=== PATIENT | male | born 1980 | race African-American/Black ===

== ENCOUNTER 2018-03-20 22:48 | Emergency (ER) | payer OTHER ==
[~2018-03-20] VITALS: Ht 180.3 cm; Wt 72.6 kg
[2018-03-20 22:50] VITALS: BP 133/86
[2018-03-20] MEDS ORDERED: AMOX875T PO (23:17)
--- NOTE | 2018-03-20 23:17 | PHYS DOC ---
Adult General Chief Complaint Chief Complaint: SORE THROAT HPI HPI Patient is a 38 year old male who presents with sore throat, cough and nasal congestion for one day. Patient denies any fever. Review of Systems Review of Systems Constitutional: Denies fever or chills [] Eyes: Denies change in visual acuity, redness, or eye pain [] HENT: Reports nasal congestion and sore throat [] Respiratory: Reports cough, denies shortness of breath [] Cardiovascular: No additional information not addressed in HPI [] GI: Denies abdominal pain, nausea, vomiting, bloody stools or diarrhea [] : Denies dysuria or hematuria [] Musculoskeletal: Denies back pain or joint pain [] Integument: Denies rash or skin lesions [] Neurologic: Denies headache, focal weakness or sensory changes [] All other systems were reviewed and found to be within normal limits, except as documented in this note. Current Medications Current Medications Current Medications Medications (Trade) Dose Ordered Sig/Myla Start Time Stop Time Status Last Admin Dose Admin Amoxicillin (Amoxil) 500 mg 1X ONCE 03/20/18 23:30 03/20/18 23:31 DC 03/20/18 23:15 500 MG Prednisone (Prednisone) 50 mg 1X ONCE 03/20/18 23:30 03/20/18 23:31 DC 03/20/18 23:15 50 MG Allergies Allergies Allergies Coded Allergies Type Severity Reaction Last Updated Verified No Known Drug Allergies 03/20/18 No Physical Exam Physical Exam Constitutional: Well developed, well nourished, no acute distress, non-toxic appearance. [] HENT: Normocephalic, atraumatic, bilateral external ears normal, oropharynx moist, no oral exudates, nose normal. [] Posterior pharynx with moderate erythema. No exudate. +2 anterior cervical adenopathy. Eyes: PERRLA, EOMI, conjunctiva normal, no discharge. [] Neck: Normal range of motion, no tenderness, supple, no stridor. [] Cardiovascular:Heart rate regular rhythm, no murmur [] Lungs & Thorax: Bilateral breath sounds clear to auscultation [] Abdomen: Bowel sounds normal, soft, no tenderness, no masses, no pulsatile masses. [] Skin: Warm, dry, no erythema, no rash. [] Back: No tenderness, no CVA tenderness. [] Extremities: No tenderness, no cyanosis, no clubbing, ROM intact, no edema. [] Neurologic: Alert and oriented X 3, normal motor function, normal sensory function, no focal deficits noted. [] Psychologic: Affect normal, judgement normal, mood normal. [] Current Patient Data Vital Signs Vital Signs Date Time Temp Pulse Resp B/P (MAP) Pulse Ox O2 Delivery O2 Flow Rate FiO2 03/20/18 22:50 99.0 92 18 133/86 (102) 98 Room Air 99.0 EKG EKG [] Radiology/Procedures Radiology/Procedures [] Course & Med Decision Making Course & Med Decision Making Pertinent Labs and Imaging studies reviewed. (See chart for details) This is a 38-year-old male patient presenting to the ED today with sore throat cough and nasal congestion. Positive rapid strep. Discharged with amoxicillin. Tylenol/ Motrin for pain or fever. Saltwater gargles recommended. Follow-up with PCP in 1-2 weeks as needed. Instructed to return to the ED at any point symptoms worsen. Dragon Disclaimer Dragon Disclaimer This electronic medical record was generated, in whole or in part, using a voice recognition dictation system. Departure Departure Impression: Primary Impression: Acute streptococcal pharyngitis Additional Impressions: Upper respiratory infection Cough Disposition: HOME, SELF-CARE Condition: STABLE Patient Instructions: Cough, Adult, [id number], Strep Infections, Upper Respiratory Infection, Adult, [id number] Additional Instructions: You have strep throat infection. You also have a cough and nasal congestion. Take the prescribed antibiotics until completed. You can take Tylenol/ Motrin for pain or fever. Use saltwater gargles. Follow-up with your own doctor in 1-2 weeks as needed. Please come back to the ED at any point symptoms worsen. Scripts Amoxicillin (AMOXICILLIN) 875 Mg Tablet 1 TAB PO BID, #20 TAB Prov: LALI COLLADO [employer]YFREEZE OPERATOR 03/20/18 Attending Signature Attending Signature I have reviewed the PA/COIL MAKER's note and plan of care. I was available for consultation as needed during the patient's visit in the emergency department. I agree with the clinical impression, plan, and disposition. Problem Qualifiers Additional Impressions: Upper respiratory infection URI type: unspecified URI Qualified Codes: J06.9 - Acute upper respiratory infection, unspecified MUTLALI ARAUZ APRN Mar 20, 2018 23:17 PEGGY GALLO DO Mar 21, 2018 03:39
[2018-03-20] MEDS ORDERED: predniSONE 20 MG TABLET PO ONE (23:30)
[2018-03-20] MEDS ORDERED: AMOXICILLIN 250 MG CAPSULE. PO ONE (23:30)
== END 2018-03-20 23:20 | disposition home or self-care (01) ==
LOC: ER 22:48
DX: J02.0 Streptococcal pharyngitis (principal); B95.0 Streptococcus, group A, as the cause of diseases classified elsewhere
CPT/HCPCS: 87880; 99283; J7512

== ENCOUNTER 2018-11-29 21:02 | Emergency (ER) | payer OTHER ==
[~2018-11-29] VITALS: Ht 180.3 cm; Wt 74.8 kg
[~2018-11-29 21:02] MED LIST: AMOX875T PO
[2018-11-29 21:09] VITALS: BP 113/68
--- NOTE | 2018-11-29 21:19 | PHYS DOC ---
Past Medical History Past Medical History: No Pertinent History Past Surgical History: No Surgical History Alcohol Use: Occasionally Drug Use: None Adult General Chief Complaint Chief Complaint: BACK PAIN - NO INJURY HPI HPI Patient is a 38 year old [f__sex] who presents with [] Review of Systems Review of Systems Constitutional: Denies fever or chills Eyes: Denies redness or eye pain HENT: Denies nasal congestion or sore throat Respiratory: Denies cough or shortness of breath Cardiovascular: Denies chest pain or palpitations GI: Denies abdominal pain, nausea, or vomiting : Denies dysuria or hematuria Musculoskeletal: Denies back pain or joint pain Integument: Denies rash or skin lesions Neurologic: Denies headache, focal weakness or sensory changes Complete systems were reviewed and found to be within normal limits, except as documented in this note. Current Medications Current Medications Current Medications Medications (Trade) Dose Ordered Sig/Myla Start Time Stop Time Status Last Admin Dose Admin Dexamethasone (Decadron) 10 mg 1X ONCE 11/29/18 21:45 11/29/18 21:46 DC 11/29/18 21:49 10 MG Naproxen (Naprosyn) 500 mg 1X ONCE 11/29/18 21:45 11/29/18 21:46 DC 11/29/18 21:49 500 MG Allergies Allergies Allergies Coded Allergies Type Severity Reaction Last Updated Verified No Known Drug Allergies 03/20/18 No Physical Exam Physical Exam Constitutional: Well developed, well nourished, no acute distress, non-toxic appearance HENT: Normocephalic, atraumatic, oropharynx moist Eyes: PERRL, EOMI, conjunctiva normal, no discharge Neck: Normal range of motion, no tenderness, supple Cardiovascular: Heart rate normal, regular rhythm Lungs & Thorax: Bilateral breath sounds clear to auscultation, no wheezing Abdomen: Soft, no tenderness Skin: Warm, dry, no erythema, no rash Back: No tenderness, no CVA tenderness Extremities: No tenderness, ROM intact, no edema Neurologic: Alert and oriented X 3, normal motor function, normal sensory function, no focal deficits noted Psychologic: Affect normal, judgement normal, mood normal Current Patient Data Vital Signs Vital Signs Date Time Temp Pulse Resp B/P (MAP) Pulse Ox O2 Delivery O2 Flow Rate FiO2 11/29/18 21:09 98.5 82 16 113/68 (83) 99 Room Air 98.5 EKG EKG [] Radiology/Procedures Radiology/Procedures [] Course & Med Decision Making Course & Med Decision Making Patient stable for discharge with outpatient follow-up with PCP. Discussed findings and plan with patient and family, who acknowledge understanding and agreement. Dragon Disclaimer Dragon Disclaimer This electronic medical record was generated, in whole or in part, using a voice recognition dictation system. Splinting Splinting : Location: left knee Pre-Made Type: NAHEED bandage Pre-Proc Neuro Vasc Exam: normal Post-Proc Neuro Vasc Exam: normal, unchanged from pre-exam Departure Departure Impression: Primary Impression: Back pain Additional Impressions: Sciatica Left knee sprain Disposition: HOME, SELF-CARE Condition: STABLE Referrals: NO PCP (PCP) BLANCA GRADY MD, JOHN N MD Patient Instructions: Back Pain, Adult, [id number], Knee Sprain, [id number], Knee Wraps (Elastic Bandage) and RICE, Sciatica, [id number] Scripts Naproxen (NAPROXEN) 375 Mg Tablet 375 MG PO TID PRN PRN for PAIN, #30 Prov: PEGGY GALLO DO 11/29/18 Orphenadrine Citrate (ORPHENADRINE CITRATE) 100 Mg Tablet.er 100 MG PO BID PRN for MUSCLE PAIN, #14 Prov: PEGGY GALLO DO 11/29/18 Prednisone (PREDNISONE) 20 Mg Tablet 2 TAB PO DAILY, #8 TAB Start this prescription tomorrow, 11/30/18 Prov: PEGGY GALLO DO 11/29/18 Problem Qualifiers Primary Impression: Back pain Back pain location: low back pain Chronicity: acute Back pain laterality: bilateral Sciatica presence: with sciatica Sciatica laterality: sciatica of left side Qualified Codes: M54.42 - Lumbago with sciatica, left side Additional Impressions: Sciatica Laterality: left Qualified Codes: M54.32 - Sciatica, left side Left knee sprain Encounter type: initial encounter Involved ligament of knee: unspecified ligament Qualified Codes: S83.92XA - Sprain of unspecified site of left knee, initial encounter PEGGY GALLO DO Nov 29, 2018 21:18
[2018-11-29] MEDS ORDERED: ORPH100T PO (21:36)
[2018-11-29] MEDS ORDERED: NAPR-695 PO (21:36)
[2018-11-29] MEDS ORDERED: PRED20TA PO (21:36)
[2018-11-29] MEDS ORDERED: DEXAMETHASONE 4 MG TABLET PO ONE (21:45)
[2018-11-29] MEDS ORDERED: NAPROXEN 500 MG TABLET PO ONE (21:45)
== END 2018-11-29 21:50 | disposition home or self-care (01) ==
LOC: ER 21:02
DX: S83.8X2A Sprain of other specified parts of left knee, initial encounter (principal); M54.42 Lumbago with sciatica, left side; X58.XXXA Exposure to other specified factors, initial encounter; Y93.89 Activity, other specified; Y92.89 Other specified places as the place of occurrence of the external cause; Y99.8 Other external cause status
CPT/HCPCS: 99283; J8540